=== PATIENT | female | born 1945 | race Caucasian/White ===

== ENCOUNTER 2016-06-26 07:12 | Inpatient (IN) | payer MEDICARE, BC ==
--- NOTE | 2016-06-18 15:03 | HP ---
HISTORY AND PHYSICAL: DATE OF ADMISSION: 06/26/16 CHIEF COMPLAINT: Left hip pain, osteoarthritis. HISTORY OF PRESENT ILLNESS: This 70-year-old white female has had left hip pain for sometime now. She is scheduled with Dr. Missy Floyd at [facility] on 06/26/16 for a left total hip replacement. PAST MEDICAL HISTORY: The patient is under the care of Dr. Jordan Alfred in [place], [place]. She has a history of hypertension, sleep apnea. However, she is currently not using her CPAP device, restless leg syndrome, morbid obesity. She underwent a laparoscopic sleeve gastrectomy in February 2015 and has been successful in losing approximately 85 pounds since her surgery for morbid obesity. She no longer has GE reflux symptoms since that surgery. PAST SURGICAL HISTORY: Other surgical history includes a tonsillectomy as a child, bilateral total knee replacements, bilateral rotator cuff repairs, laparoscopic tubal ligation, laparoscopic cholecystectomy, right carpal tunnel release and more recently in August 2015 a left wrist reconstruction with carpal tunnel release. She continues to have some residual left wrist pain and might require further surgery. CURRENT MEDICATIONS: 1. Hydrochlorothiazide 12.5 mg daily. 2. Losartan 50 mg daily. 3. Vitamin B12 500 mcg daily. 4. Flintstones chewable multiple vitamin daily. 5. Ropinirole 1 mg t.i.d. 6. Diclofenac or Aleve p.r.n. pain symptoms. ALLERGIES: ZITHROMAX, rash. DOXYCYCLINE, itching. LISINOPRIL, cough. GABAPENTIN, edema. She also has sensitive to ADHESIVES. FAMILY HISTORY: Father smoker, had emphysema, Parkinson's, at age 76. Mother, longevity, at age 92. SOCIAL HISTORY: The patient is , lives in the [place] area, retired. She has never used tobacco. Alcohol limited to glass of wine per week. REVIEW OF SYSTEMS: The patient complains of right knee pain, low back discomfort that sometimes radiates into her right lower extremity. Patient wears glasses. She has some chronic sneezing and chronic postnasal drip related to allergies. Chronic ankle edema. She does see Dr. Huntley for skin care every year, last seen in February. Otherwise, review of systems is negative to detailed questioning. Specifically, she denies any dyspnea, cough, chest pain, palpitations or edema symptoms. Denies any GI symptoms or urinary symptoms. PHYSICAL EXAMINATION GENERAL: This is a 70-year-old white female who is alert, pleasant and cooperative in no acute distress at the present time. VITAL SIGNS: Height 5 feet 2 inches, weight 203 pounds, blood pressure 132/68, pulse 76. HEENT: Pupils equal, round and reactive to light. Ears normal. Mouth: Teeth in good repair. Tongue in the midline. Pharynx is clear. NECK: Fair range of motion. No adenopathy. Thyroid benign. BACK: Mild kyphosis. No tenderness noted of the spine or CVA areas LUNGS: Clear. HEART: Rhythm is regular. Apical pulse is 76 beats per minute. No murmurs. ABDOMEN: Obese, multiple well-healed scars from previous surgeries. Active bowel sounds. Abdomen is soft, nontender. No obvious masses or organomegaly. However, this exam is difficult related to the patient's obese abdomen. NEUROLOGIC: Cranial nerves grossly intact. DIAGNOSTIC STUDIES/LABORATORY DATA: EKG showed normal sinus rhythm with a rare PAC, within normal limits. IMPRESSION: The patient is medically stable and cleared for her surgery with Dr. Missy Floyd on 06/26/16 for a left total hip replacement. ABDELRAHMAN GARCIA NP CC: Dr. Alfred; Dr. Floyd; Preadmission Testing Unit at the [facility] * [id number]/[facility] #: [id number] MTDD
--- NOTE | 2016-06-20 14:51 | HP ---
HISTORY AND PHYSICAL: DATE OF ADMISSION/SURGERY: 06/26/16 PROCEDURE: Left total hip arthroplasty. CHIEF COMPLAINT: Left hip pain. HISTORY OF PRESENT ILLNESS: Ms. Strong is a 70-year-old female with complaints of left hip pain. She has failed conservative management and has elected to proceed with a left total hip arthroplasty , which is scheduled for 06/26/[address] Floyd. PAST MEDICAL HISTORY: 1. Hypertension. 2. Sleep apnea. 3. Skin cancer. 4. Restless leg syndrome. PAST SURGICAL HISTORY: 1. Bariatric surgery. 2. Skin cancer removal. 3. Bilateral total knee arthroplasties. 4. Bilateral rotator cuff repair. 5. Bilateral carpal tunnel release. 6. Cholecystectomy. 7. Tubal ligation. 8. Tonsillectomy. 9. Adenoidectomy. CURRENT MEDICATIONS: 1. Losartan potassium. 2. Hydrochlorothiazide. 3. One A Day vitamin. 4. Ropinirole. 5. Vitamin B12. ALLERGIES: To ZITHROMAX, PHENOBARBITAL, NEUPRO ADHESIVE with a PATCH of ROTIGOTINE restless leg syn drome and LEVAQUIN. FAMILY HISTORY: Heart disease, skin cancer, Parkinson's disease . SOCIAL HISTORY: She is a 70-year-old female. She is . She is retired. She does not smoke o r use drugs. She uses occasional alcohol. REVIEW OF SYSTEMS: A complete 14-point review of systems was reviewed with the patient. All was ne gative or noncontributory. PHYSICAL EXAMINATION GENERAL: She is well developed, well nourished. She is in no acute distress. VITAL SIGNS: She stands 5 feet 2 inches tall, weighs 206 pounds. Her blood pressure is 136/72. He r heart rate is 88. HEENT: Normocephalic, atraumatic. NECK: Supple. No palpable lymph nodes. Trachea is midline. PULMONARY: The lungs are clear to auscultation bilaterally. No wheezes, rhonchi, or rales. CARDIO: Regular rate and rhythm. Strong S1, S2. No murmurs, gallops, or rubs. No peripheral edema . ABDOMEN: Soft, nontender, and nondistended. MUSCULOSKELETAL: Left lower extremity skin is intact. She walks with an antalgic- type gait favori ng her left leg. She has limited internal and external rotation of her left hip. She has 2+ dorsal is pedis pulses. Intact sensation. Her lower extremity muscle group strengths are intact at 5/5. NEUROLOGICAL: She is alert and oriented x3. Cranial nerves II through XII are intact. ASSESSMENT AND PLAN: Ms. Strong is a 70-year-old female with complaints of left hip pain secondar y to advanced osteoarthritis. She has failed conservative management and has elected to proceed wit h a left total hip arthroplasty, which is scheduled for 06/26/[address] Floyd discusse d the risks and benefits of the surgery and all of her questions were answered. Percocet, Colace, a nd Coumadin were sent to her pharmacy for postoperative pain control and DVT prophylaxis. She will see Dr. Floyd back in clinic for followup in 10 to 14 days. MOHSEN HANLEY [id number]/[facility] #: [id number]
[~2016-06-26 07:12] MED LIST: Buffered Lidocaine 1% SYRIN* 3 ML/SYR SYRINGE INTRADERM ONE; Dexamethasone IV* 4 MG/ML 1 ML (4 MG) IV SLOW PU ONE; Famotidine IV* 10 MG/ML 2 ML (20 mg) IV ONE; Scopolamine 1.5 mg* PATCH TRANSDERM ONE
[2016-06-26] MEDS ORDERED: Famotidine IV* 10 MG/ML 2 ML (20 mg) ONE (07:32)
[2016-06-26] MEDS ORDERED: Dexamethasone IV* 4 MG/ML 1 ML (4 MG) ONE (07:32)
[2016-06-26] MEDS ORDERED: Scopolamine 1.5 mg* PATCH ONE (07:33)
[2016-06-26] MEDS ORDERED: ceFAZolin 2 GM PREMIX(*) 2 GM/50 ML BAG IVPB ONE (07:33)
[2016-06-26] MEDS ORDERED: Bupivacaine 0.5% SDV PF* 30 ML VIAL ONE (08:31)
[2016-06-26] MEDS ORDERED: PROCHLORPERAZINE INJ 5 MG/ML 2 ML VIAL IV PRN (09:39)
[2016-06-26] MEDS ORDERED: Acetaminophen IV 1GM/100ML * 100 ML IVPB ONE (09:39)
[2016-06-26] MEDS ORDERED: Morphine INJ* 2 MG/ML 1 ML SYRINGE IV PRN (09:39)
[2016-06-26] MEDS ORDERED: fentaNYL* 50 MCG/ML 2 ML VIAL (100 MCG VIAL) IV PRN (09:39)
[2016-06-26] MEDS ORDERED: oxyCODONE TAB* 5 MG TAB PO PRN (09:41)
[2016-06-26] MEDS ORDERED: Midazolam* 1 MG/ML 5 ML VIAL (5 MG) ONE (09:44)
[2016-06-26] MEDS ORDERED: fentaNYL* 50 MCG/ML 2 ML VIAL (100 MCG VIAL) ONE ×3 (09:44→11:47)
[2016-06-26] MEDS ORDERED: Rocuronium* 10 MG/ML VIAL ONE (10:10)
[2016-06-26] MEDS ORDERED: Lidocaine 2% PF* 5 ML VIAL ONE (10:10)
[2016-06-26] MEDS ORDERED: Propofol* 10 MG/ML 20 ML BTL IV PUSH ONE (10:10)
[2016-06-26] MEDS ORDERED: KETAMINE HCL* 50 MG/ML 10 ML VIAL ONE (10:11)
[2016-06-26] MEDS ORDERED: Phenylephrine IV* 40 MCG/ML 10 ML SYRINGE ONE (10:35)
[2016-06-26] MEDS ORDERED: EPHEDrine (Pressors)* 50 MG/ML VIAL ONE (10:48)
[2016-06-26] MEDS ORDERED: Ondansetron INJ* 2 MG/ML VIAL ONE (11:48)
--- NOTE | 2016-06-26 12:37 | RAD ---
Indication: LEFT total hip replacement. Osteoarthritis. Comparison: June 20, 2016 Technique: Crosstable RIGHT lateral decubitus radiograph of the LEFT hip 1058 hours Report: Acetabular component with fixation screw in place. Test fit/reamer femur component in place. No fracture evident in the AP projection. Lateral subcutaneous emphysema. IMPRESSION: Procedural control film.
[2016-06-26] MEDS ORDERED: Acetaminophen IV 1GM/100ML * 100 ML ONE (13:04)
[2016-06-26] MEDS ORDERED: oxyCODONE/Acetamin 5/325 MG* TAB PO PRN (13:20)
[2016-06-26] MEDS ORDERED: Ondansetron TAB* 4 MG PO PRN (13:26)
[2016-06-26] MEDS ORDERED: Polyethylene Glycol 3350* 17 GM PACKET PO PRN (13:26)
[2016-06-26] MEDS ORDERED: Bisacodyl SUPP* 10 MG SUPP PR PRN (13:26)
[2016-06-26] MEDS ORDERED: Morphine INJ* 4 MG/ML 1 ML SYRINGE IV PRN (13:26)
[2016-06-26] MEDS ORDERED: Ondansetron INJ* 2 MG/ML VIAL IV PRN (13:26)
[2016-06-26] MEDS ORDERED: diPHENhydraMINE IV* 50 MG/ML 1 ml VIAL (BENADRYL) IV PRN (13:26)
[2016-06-26] MEDS ORDERED: LACTULOSE* 30 ML UDC PO PRN (13:26)
[2016-06-26] MEDS ORDERED: diPHENhydraMINE PO* 25 MG PO PRN (13:26)
--- NOTE | 2016-06-26 14:04 | RAD ---
INDICATION: Postop left total hip replacement COMPARISON: Pelvis June 26, 2006 TECHNIQUE: A single AP view of the pelvis is submitted. FINDINGS: There is left hip arthroplasty. Both femoral and tibial components appear well seated. There are soft tissue changes compatible with the recent surgery. IMPRESSION: POSTOPERATIVE LEFT HIP ARTHROPLASTY. THERE IS NORMAL POSTOPERATIVE APPEARANCE.
--- NOTE | 2016-06-26 14:05 | RAD ---
INDICATION: Postoperative left hip arthroplasty COMPARISON: Pelvis June 26, 2016 TECHNIQUE: An AP and crosstable lateral view of the left hip are submitted FINDINGS: There is left hip arthroplasty. Both femoral and acetabular components appear well seated. There are postsurgical changes in the soft tissues compatible with the recent surgery. IMPRESSION: POSTOPERATIVE LEFT HIP ARTHROPLASTY.
[2016-06-26] MEDS: rOPINIRole TAB* 1 MG PO SCH ×2 (16:45→21:29)
[2016-06-26] MEDS: ceFAZolin 1 GM in Dextrose (*) 1 GM/50 ML BAG IVPB SCH (16:46)
[2016-06-26] MEDS ORDERED: Warfarin TAB(*) 6 MG PO ONE (17:00)
[2016-06-26] MEDS: oxyCODONE TAB* 5 MG TAB PO PRN (18:44)
[2016-06-26] MEDS: Docusate CAP* 100 MG PO SCH (21:16)
[2016-06-26] MEDS: Magnesium Hydroxide LIQ* 30 ML UDC PO SCH (21:17)
--- NOTE | 2016-06-26 22:57 | CONS ---
CONSULTATION REPORT: DATE OF CONSULT: 06/26/16 DATE OF ADMISSION: 06/26/16 PROVIDER: Brit Boyd NP ATTENDING PHYSICIAN: Dr. Vences (report dictated by Brit Boyd NP) PRIMARY CARE PROVIDER: Dr. Alfred. REFERRING PHYSICIAN: Dr. Floyd. CONSULTATION REASON: Elective left total hip arthroplasty. Consultation for co - medical management. HISTORY OF PRESENT ILLNESS: Ms. Strong is a 70-year-old female with a past medical history of hypertension, sleep apnea, history of skin cancer, restless leg syndrome who had complaints of left hip pain who failed conservative management and underwent an elective left total hip arthroplasty with Dr. Floyd today. Hospital Medicine was asked to co-medical manage. The patient was evaluated at the bedside. She is alert and oriented x3. She reports left hip pain and which she thinks are secondary to the restless leg syndrome and which she describes as "spasms." She is requesting her Requip to be restarted and reports good control on the Requip. Per patient, she does not normally use her CPAP machine at home. However, she did bring it with her and plans to use it this evening. The patient denies any shortness of breath or chest pain. Denies any recent illnesses. Reports that her hypertension is well controlled. Overall, the patient reports that she currently feels "pretty well." Her son is at the bedside. PAST MEDICAL HISTORY: 1. Hypertension. 2. Sleep apnea, currently not using her CPAP device at home. 3. Restless leg syndrome. 4. Morbid obesity. 5. Status post laparoscopic sleeve gastrectomy in February 2015 in which she lost approximately 85 pounds since her surgery for morbid obesity. PAST SURGICAL HISTORY: 1. Status post tonsillectomy as a child. 2. Status post bilateral total knee replacement. 3. Bilateral rotator cuff repairs. 4. Laparoscopic tubal ligation. 5. Laparoscopic cholecystectomy. 6. Right carpal tunnel release. 7. Left wrist construction with carpal tunnel release, August 2015. HOME MEDICATIONS: 1. Hydrochlorothiazide 12.5 mg p.o. daily. 2. Losartan 50 mg p.o. daily. 3. Vitamin B12 500 mcg p.o. daily. 4. Flintstones chewable multivitamin daily. 5. Requip 1 mg t.i.d. 6. Diclofenac orally p.r.n. for pain. ALLERGIES: ZITHROMAX, rash; DOXYCYCLINE, itching; LISINOPRIL, cough; GABAPENTIN , edema. The patient has sensitivity to ADHESIVES. FAMILY HISTORY: The patient's mother at age 92. Her father had Parkinson' s disease and at age 76. SOCIAL HISTORY: The patient denies a history of tobacco abuse. Reports few glasses of wine weekly. The patient is currently retired. She is and lives with her , Norberto Strong, who is her healthcare proxy. His number is [phone] cell, home is [phone]. REVIEW OF SYSTEMS: A 14-point review of systems was performed. All the pertinent positives and negatives are mentioned in the history of present illness. All the remaining systems are negative. PHYSICAL EXAM: Vital Signs: Temperature 96.9, heart rate 83, respirations 14, O2 sat 100% on room air, blood pressure 123/60. Appearance: A 70-year-old female, sitting in bed, alert and oriented x3, in no acute distress. Good historian, very pleasant, appropriate to situation. HEENT: Head is normocephalic, atraumatic. Pupils are equal and reactive to light. Oropharynx is clear. Dry mucous membranes. Good dentition. Neck: Supple. Cardiac: S1 , S2. Regular rate and rhythm. No murmurs appreciated. Respiratory: Lungs are clear to auscultation bilaterally. Good aeration throughout. Abdomen: Soft, nontender, nondistended, obese, multiple healed scars from previous surgeries. Normal bowel sounds x4. No guarding. Extremities: Lower extremities are in hip precaution pillow. She has sensation to bilateral lower extremities with 2+ DP pulses bilaterally. Trace edema to bilateral lower extremities. Neuro: Grossly intact. Psych: Alert and oriented x3. Appropriate to situation. DIAGNOSTIC STUDIES/LAB DATA: No labs had been performed today. ASSESSMENT AND PLAN: Ms. Strong is a 70-year-old female with a past medical history of hypertension, sleep apnea, restless leg syndrome who presented for an elective left total hip arthroplasty today with Dr. Floyd. [facility] was asked to co-medical manage. 1. Status post left total hip arthroplasty. Postop day 0. Disposition per ortho team. Pain management, bowel regimen. PT/OT. 2. Hypertension, well controlled. We will hold the patient's hydrochlorothiazide in the postoperative setting and continue losartan at this time. We will reevaluate blood pressures tomorrow. 3. Restless leg syndrome. Per patient, it can be quite a debilitating problem for her and she was very concerned about missing her Requip dose at 4 p.m. today. I have restarted her Requip at this time as the patient is having spasms. I do note that Requip can cause some orthostatic hypotension. I have instructed the nurses and the patient to change position slowly and monitor for signs of orthostatic hypotension. 4. Obstructive sleep apnea. I have recommended to the patient she should wear her CPAP this evening and have ordered for her to be able to use her own equipment while in the hospital. 5. DVT prophylaxis. Lovenox to Coumadin bridge per ortho team. 6. Code status. Full code. TIME SPENT: Approximately 45 minutes were spent on this consultation. Hospital Medicine will continue to follow along. BRIT BOYD, CALLI [id number]/[facility] #: [id number] NATA
[2016-06-27] MEDS: ceFAZolin 1 GM in Dextrose (*) 1 GM/50 ML BAG IVPB SCH ×2 (00:46→08:38)
[2016-06-27] MEDS: oxyCODONE TAB* 5 MG TAB PO PRN ×5 (01:55→21:58)
[2016-06-27] MEDS: rOPINIRole TAB* 1 MG PO SCH ×3 (02:02→21:57)
[2016-06-27] MEDS ORDERED: Cyclobenzaprine TAB* 10 MG ONE (03:06)
[2016-06-27] MEDS ORDERED: Cyclobenzaprine TAB* 10 MG PO PRN (03:14)
[2016-06-27 06:29] LABS: Hematocrit 31 % (35-47); Hemoglobin 10.2 g/dl (12.0-16.0)
[2016-06-27 07:02] LABS: BUN/Creatinine Ratio 24.3 (8-20); EGFR African American 100.4 (>60)
--- NOTE | 2016-06-27 07:44 | PN ---
Progress Note - Progress Note SOAP: Subjective: Pt. is alert, mm spasms overnight greatly helped with cyclobenzaprine. Objective: LLE - dressing c/d/i. thigh soft, distally nvi with +df/pf, full sens lt and 2+ dp pulse. Vital Signs: Temp Pulse Resp BP Pulse Ox 98.1 F 84 18 92/36 92 06/27/16 03:38 06/27/16 03:38 06/27/16 07:28 06/27/16 03:38 06/27/16 03:38 Laboratory Results - last 24 hr 06/27/16 06/27/16 06/27/16 06:16 06:16 06:16 Hgb 10.2 L Hct 31 L INR (Anticoag Therapy) 1.01 Sodium 137 Potassium 4.0 Chloride 102 Carbon Dioxide 28 Anion Gap 7 BUN 18 Creatinine 0.74 Est GFR ( Amer) 100.4 Est GFR (Non-Af Amer) 78.0 BUN/Creatinine Ratio 24.3 H Glucose 112 H Calcium 9.0 Assessment: 70 yo F pod 1 s/p LTHA Plan: wbat LLE with post. hip precautions pt/ot lovenox in hospital, home on [address] bid plan d/c to home with vns 06/28
[2016-06-27] MEDS: Docusate CAP* 100 MG PO SCH ×2 (08:39→21:57)
[2016-06-27] MEDS: Magnesium Hydroxide LIQ* 30 ML UDC PO SCH ×2 (08:39→21:59)
[2016-06-27] MEDS: Cyanocobalamin TAB* 500 MCG PO SCH (08:40)
--- NOTE | 2016-06-27 08:53 | PN ---
Subjective Date of Service: 06/27/16 Interval History: pt reports she is sore and stiff but doing well overall. Reports muscle spasms that were intense overnight now controlled. Denies SOB or CP Objective Active Medications: Bisacodyl (Dulcolax Supp*) 10 mg UT DAILY PRN PRN Reason: constipation Cyanocobalamin (Vitamin B12 Tab*) 500 mcg PO DAILY [facility] Last Admin: 06/27/16 08:40 Dose: 500 mcg Cyclobenzaprine HCl (Flexeril Tab*) 10 mg PO Q8H PRN PRN Reason: MUSCLE SPASMS Diphenhydramine HCl (Benadryl Iv*) 12.5 mg IV Q6H PRN PRN Reason: PRURITIS Diphenhydramine HCl (Benadryl Po*) 25 mg PO Q6H PRN PRN Reason: itching or insomnia Docusate Sodium (Colace Cap*) 100 mg PO BID [facility] Last Admin: 06/27/16 08:39 Dose: 100 mg Enoxaparin Sodium (Lovenox(*)) 30 mg SUBCUT Q24H [facility] Lactated Ringer's (Lactated Ringers 1000 Ml Bag*) 1,000 mls @ 100 mls/hr IV PER RATE [facility] Last Admin: 06/27/16 02:54 Dose: 100 mls/hr Lactulose (Lactulose*) 30 ml PO Q6H PRN PRN Reason: constipation Losartan Potassium (Cozaar Tab*) 50 mg PO QAM [facility] Magnesium Hydroxide (Milk Of Magnesia Liq*) 30 ml PO BID [facility] Last Admin: 06/27/16 08:39 Dose: 30 ml Morphine Sulfate (Morphine Inj (Syringe)*) 4 mg IV Q2H PRN PRN Reason: PAIN Ondansetron HCl (Zofran Inj*) 4 mg IV Q6H PRN PRN Reason: nausea Ondansetron HCl (Zofran Tab*) 4 mg PO Q6H PRN PRN Reason: NAUSEA Oxycodone HCl (Roxycodone Tab*) 5 mg PO ONCE PRN PRN Reason: PRn Pain in PACU,May repeat x1 Oxycodone HCl (Roxycodone Tab*) 10 mg PO Q4H PRN PRN Reason: breaktrough or moderate pain Last Admin: 06/27/16 07:28 Dose: 10 mg Oxycodone/Acetaminophen (Percocet 5/325 Tab*) 1 tab PO Q4H PRN PRN Reason: PAIN Pharmacy Profile Note (Scopolomine Patch Remove*) 1 note PATCH OFF ONCE ONE Stop: 06/29/16 06:01 Pharmacy Profile Note (Coumadin Daily Reminder*) 1 note FOLLOW UP 1700 [facility] Last Admin: 06/26/16 17:26 Dose: Not Given Polyethylene Glycol/Electrolytes (Miralax*) 17 gm PO DAILY PRN PRN Reason: Constipation Ropinirole HCl (Requip Tab*) 1 mg PO 0200,1600,2200 [facility] Last Admin: 06/27/16 02:02 Dose: 1 mg Vital Signs 06/27/16 06/27/16 06/27/16 01:55 03:07 03:38 Temperature 98.1 F Pulse Rate 84 Respiratory 20 20 16 Rate Blood Pressure 92/36 (mmHg) O2 Sat by Pulse 92 Oximetry 06/27/16 06/27/16 06/27/16 03:55 05:07 07:28 Temperature Pulse Rate Respiratory 18 18 18 Rate Blood Pressure (mmHg) O2 Sat by Pulse Oximetry 06/27/16 07:31 Temperature 98.1 F Pulse Rate 91 Respiratory 17 Rate Blood Pressure 102/53 (mmHg) O2 Sat by Pulse 97 Oximetry Oxygen Devices in Use Now: None Appearance: 70 yo female sitting up in bed in NAD. A+O x3 Eyes: No Scleral Icterus, PERRLA Ears/Nose/Mouth/Throat: NL Teeth, Lips, Gums, Mucous Membranes Moist Neck: NL Appearance and Movements; NL JVP Respiratory: Symmetrical Chest Expansion and Respiratory Effort, Clear to Auscultation Cardiovascular: NL Sounds; No Murmurs; No JVD, RRR Abdominal: NL Sounds; No Tenderness; No Distention Extremities: No Clubbing, Cyanosis, - - 1+ LE edema noted Skin: No Nodules or Sclerosis Neurological: Alert and Oriented x 3, NL Sensation, NL Muscle Strength and Tone Lines/Tubes/Other Access: Clean, Dry and Intact Peripheral IV Nutrition: Taking PO's Result Diagrams: 06/27/16 06:16 06/27/16 06:16 Assess/Plan/Problems-Billing Assessment: 70 yo female with a PMH of HTN, RUTH ANN, restless leg syndrome who underwent an elective left total hip arthroplasty 06/[address] Floyd. - Patient Problems (1) s/p left hip arthroplasty Comment: POD #1 Dispo per ortho - HH stable, continue to monitor - PT/OT - Bowel Regimen. (2) HTN (hypertension) Comment: - controlled, on the softer side. Continue losartan, hold HCTZ (3) Restless leg syndrome Comment: - continue home dose requip - flexeril PRN (4) RUTH ANN (obstructive sleep apnea) Comment: - home cpap (5) DVT prophylaxis Comment: lovenox to coumadin (6) Full code status Status and Disposition: Dispo per Ortho. Home when medically stable. Hospital Medicine co-medical management
[2016-06-27] MEDS ORDERED: Hydrochlorothiazide TAB* 25 MG PO SCH (09:00)
[2016-06-27] MEDS: Losartan TAB* 25 MG PO SCH (11:23)
[2016-06-27] MEDS: Enoxaparin(*) 30 MG/0.3 ML SYR SUBCUT SCH (13:17)
--- NOTE | 2016-06-27 17:53 | OP ---
DATE OF OPERATION: 06/26/16 - ROOM #347 DATE OF : 49 SURGEON: Missy Floyd MD EMERGENCY PLANNING AND RESPONSE MANAGER: MOHSEN Sin ANESTHESIOLOGIST: Dr. Hansen. ANESTHESIA: General. 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 OPERATIVE PROCEDURE: Left total hip arthroplasty. INDICATIONS: Ms. Strong is a 70-year-old female with years of increasingly severe left hip pain. She failed conservative treatment with activity modification, physical therapy, antiinflammatories, ambulatory assistive devices , and pain medication. Radiographs confirmed dysplasia of the hip and severe arthritis with dnrr-te-[id number] contact. She elected to have left total hip arthroplasty due to continued pain and decreased quality of life. Informed consent was obtained from the patient. She understood the risks of the procedure included but were not limited to bleeding, infection, damage to nearby structures, continued pain, need for further surgery, intraoperative fracture, nerve palsy, hardware failure or loosening, dislocation, leg length discrepancy, stroke, heart attack, blood clot, and . She wished to proceed. COMPLICATIONS: None. ESTIMATED BLOOD LOSS: 400 cc. SPECIMENS: Femoral head and acetabular reaming sent to Pathology. HARDWARE USED: This was uncemented [place]hill total hip hardware. For the cup, a size 50 Tritanium multi-hole shell with 2 cancellous bone screws, length 20 and 16. A Trident X3 10-degree 32D liner was used. For the stem, an accolade TMZF size 2.5 with 132-degree neck as well as a ceramic Biolox delta 32 -4 femoral head. INTRAOPERATIVE FINDINGS: Intraoperatively, the patient was noted to have a dysplastic shallow acetabulum with very little medial bone. The bone was sclerotic with complete loss of cartilage. Femoral head had complete loss of cartilage as well. There was dysplastic shape to the proximal femur and neck. DESCRIPTION OF PROCEDURE: Ms. Strong was identified in the preanesthesia unit. Her left lower extremity was marked as the correct operative side. Informed consent was signed and placed in the chart. The patient was taken to the operating room and placed under general anesthesia. A Leal catheter was placed. She was placed in the right lateral decubitus position on the peg board. All bony prominences were well padded. Left lower extremity was prepped and draped in the usual sterile fashion. Preop time-out was made to correctly identify the patient's side and site. Appropriate perioperative antibiotics were given within 1 hour of incision. A 10-cm posterior hip incision was made with a 10 blade and carried down to the lateral fascial layer. Lateral fascial layer was then incised in line with the skin incision. A Charnley retractor was placed. The piriformis and conjoint tendons were identified and elevated off the posterolateral femur using electrocautery. These were tagged with two #5 Ethibonds. Next, electrocautery was used to make a standard posterolateral capsular flap. This was also tagged with two #5 Ethibonds. The hip was carefully dislocated. Lesser troch to the center of the femoral head measured 53 mm. Oscillating saw was used to make the appropriate femoral neck cut. Femoral head was sent to Pathology. The femur was retracted anteriorly. After appropriate placement of retractor, the acetabulum was visualized. The acetabulum was dysplastic with complete loss of cartilage and sclerotic bone. A large amount of anterior osteophyte was noted. Posterior wall was quite thin. A long-handled knife was used to remove any remaining labrum. Sequential reaming was carefully carried out without much medial progress due to the lack of any medial bone. A bleeding bone bed was obtained with a reamer of 49 mm. A 49 trial had good fit. A size 50 multi-hole Tritanium shell was chosen as the final implant. This was impacted into place without difficulty. Appropriate anteversion and abduction angle were obtained. One 16-mm and one 20-mm screw were placed for extra stability. Thin osteotome was used to remove the anterior osteophytes. A 32D 10-degree liner was chosen and this was impacted into the acetabulum without difficulty. The liner was checked and rechecked and noted to be stable. Next, attention was turned to preparation of the proximal femur. Box cut osteotome and canal finder were used to enter the proximal femur. The femoral canal was sequentially broached up to a size 2.5 which had good stability. A 132-neck trial was chosen as well as a 32 +0 femoral head trial. Lesser troch to the center of the femoral head measured 55 mm. Therefore, a 32 -4 head was chosen; this measured 52 mm. The hip was reduced and taken through a range of motion. The hip was stable in all positions with good soft tissue tension. The hip was carefully dislocated and all trials were removed. Final implant chosen was an Accolade TMZF femoral stem size 2.5 with a 132-degree neck. A Biolox delta ceramic femoral head 32 -4 was chosen. This was impacted on to the femoral neck without difficulty. The hip was reduced and taken through a range of motion. The hip was stable in all positions with good soft tissue tension. The previously tagged capsule and tendons were reapproximated to the posterolateral femur using two trochanteric drill holes. The hip was copiously irrigated with sterile saline. The lateral fascial layer was reapproximated using interrupted #1 Vicryls. The rest of the incision was closed in a layered fashion using 0 and 2-0 Vicryls. Skin was closed using running 3-0 Monocryl suture with Dermabond. Sterile Adaptic, 4x4s, and paper tape were used to cover this. The patient's anesthesia was reversed without difficulty. She was taken to the PACU in stable condition. Intended weightbearing will be weightbearing as tolerated with posterior hip precautions. Intended DVT prophylaxis will be Lovenox in hospital and aspirin to go home with per the patient's request. [id number]/CPS #: [id number] MTDRafy
[2016-06-28] MEDS: oxyCODONE TAB* 5 MG TAB PO PRN ×3 (04:08→11:57)
[2016-06-28] MEDS: rOPINIRole TAB* 1 MG PO SCH (04:08)
[2016-06-28 06:39] LABS: Hematocrit 32 % (35-47); Hemoglobin 10.3 g/dl (12.0-16.0)
[2016-06-28] MEDS: Cyanocobalamin TAB* 500 MCG PO SCH (08:04)
[2016-06-28] MEDS: Losartan TAB* 25 MG PO SCH (08:04)
[2016-06-28] MEDS: Docusate CAP* 100 MG PO SCH (08:05)
[2016-06-28] MEDS: Magnesium Hydroxide LIQ* 30 ML UDC PO SCH (08:06)
--- NOTE | 2016-06-28 09:54 | PN ---
Progress Note - Progress Note SOAP: Subjective: []Patient seen OOB in chair. Fully dressed. Doing well. Ready to go home this afternoon. Objective: [] Vital Signs Temp 98.5 F 06/28/16 07:25 Pulse 90 06/28/16 07:25 Resp 16 06/28/16 08:05 BP 112/58 06/28/16 07:25 Pulse Ox 96 06/28/16 07:47 Intake & Output 06/27/16 06/28/16 06/28/16 18:59 06:59 18:59 Intake Total 1490 1130 Output Total 1000 450 0 Balance 490 680 0 Intake: IV Fluids 1040 ABX - CEFAZOLIN 55 LR 985 Oral 450 1130 Output: Urine 250 450 0 Leal 750 Laboratory Results - last 24 hr 06/28/16 06/28/16 06:21 06:21 Hgb 10.3 L Hct 32 L INR (Anticoag Therapy) 1.10 Left hip dressing removed- benign, no drainage on dressings +DF/PF left ankle calf NT and soft new 4x4s and tape applied. Assessment: []s/p Left total hip arthroplasty POD #2 Plan: []Discharge home this afternoon with VNS planned ASA 325 mg BID follow up with Dr. Floyd 10-14 days in office
[2016-06-28 13:26] VITALS: BP 123/54
[2016-06-28] MEDS: Enoxaparin(*) 30 MG/0.3 ML SYR SUBCUT SCH (13:36)
[2016-06-29] MEDS ORDERED: Scopolomine PATCH Remove* 1 NOTE MISC PATCH OFF ONE (06:00)
--- NOTE | 2016-06-29 06:53 | DS ---
DISCHARGE SUMMARY: DATE OF ADMISSION: 06/26/16 DATE OF DISCHARGE: 06/28/16 ATTENDING PHYSICIAN: Dr. Missy Floyd. ADMISSION DIAGNOSES: Severe end-stage degenerative arthritis, left hip joint with developmental dysplasia. DISCHARGE DIAGNOSES: Severe end-stage degenerative arthritis, left hip joint with developmental dysplasia. SURGERY PERFORMED: Left total hip arthroplasty. HOSPITAL COURSE: The patient is a 70-year-old female with increasingly severe left hip pain. She failed conservative management with Physical Therapy, anti- inflammatories, ambulatory assistive devices, pain medication, and activity modification. Her x-rays revealed a dysplastic hip and severe end-stage osteoarthritis with yxso-nz-yuwf contact. She elected to proceed with surgical intervention and was taken to the operating room under the care of Dr. Missy Floyd on the date of 06/26/16. She tolerated the aforementioned procedure without difficulty and left the operating room in stable condition. Postoperatively, she progressed satisfactorily with her physical therapy and occupational therapy goals. The patient declined use of Coumadin for her DVT prophylaxis and was placed on Lovenox during her hospital stay and was in agreement with aspirin 325 mg p.o. b.i.d. upon discharge. She had no postoperative complications and was found that she was stable medically and orthopedically for discharge to home on the date of 06/28/16. CONDITION ON DISCHARGE: Vital signs were stable. She was afebrile. Her neurovascular status in the left lower extremity was intact with active dorsiflexion and plantarflexion on the left ankle and a 2+ pedal pulse. Her calf is soft and nontender. Her left hip incision was clean and dry without evidence of erythema or swelling. PLAN: The patient to be discharged to home, 06/28/16. She may bear weight as tolerated on the left lower extremity. She will continue with her physical therapy exercise program. She will use aspirin 325 mg p.o. b.i.d. Continue with the Colace and oxycodone as previously prescribed. We recommend a followup in the office with Dr. Floyd in 10 to 14 days. She will call the office if she has any increased left hip pain, drainage, swelling, redness, or calf pain. MOHSEN RODRIGUEZ [id number]/[facility] [place] #: [id number] MTDRafy
== END 2016-06-28 14:20 | disposition home health service (06) | DRG 470 ==
LOC: AA 07:32 → SSU 15:52
PROVIDERS: ADMIT Orthopaedic Surgery Adult Reconstructive Orthopaedic Surgery; ATTEND Orthopaedic Surgery Adult Reconstructive Orthopaedic Surgery
PROC: 0SRB04A Replacement of Left Hip Joint with Ceramic on Polyethylene Synthetic Substitute, Uncemented, Open Approach (ICD-10-PCS; principal; 2016-06-26 09:45)
DX: M16.12 Unilateral primary osteoarthritis, left hip (principal); E66.01 Morbid (severe) obesity due to excess calories; I10 Essential (primary) hypertension; Q74.2 Other congenital malformations of lower limb(s), including pelvic girdle; Z79.82 Long term (current) use of aspirin; G25.81 Restless legs syndrome; Z85.828 Personal history of other malignant neoplasm of skin; Z96.653 Presence of artificial knee joint, bilateral; Z98.51 Tubal ligation status; Z88.1 Allergy status to other antibiotic agents; Z88.8 Allergy status to other drugs, medicaments and biological substances; Z98.84 Bariatric surgery status; Z83.6 Family history of other diseases of the respiratory system; Z82.0 Family history of epilepsy and other diseases of the nervous system; G47.33 Obstructive sleep apnea (adult) (pediatric); K21.9 Gastro-esophageal reflux disease without esophagitis; Z68.36 Body mass index [BMI] 36.0-36.9, adult
CPT/HCPCS: 36415; 72170; 80048; 85014; 85018; 85610; 94760; A9270-GY; C1713; C1776; J0690; J1100; J1650; J2250; J2405; J2704; J3010

== ENCOUNTER 2016-09-13 12:46 | Inpatient (IN) | payer MEDICARE, BC ==
--- NOTE | 2016-08-23 07:41 | HP ---
CC: Dr. Jordan Alfred; Dr. Missy Floyd HISTORY AND PHYSICAL: DATE OF ADMISSION: 09/13/16 CHIEF COMPLAINT: Increasing right knee pain. 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 She is scheduled by Dr. Missy Floyd at [facility] on 09/13/16 for revision of the right total knee. PAST MEDICAL HISTORY: The patient is under the care of Dr. Jordan Alfred. She has a history of hypertension; sleep apnea, however, she is not currently using her CPAP device; restless leg syndrome; morbid obesity. She underwent laparoscopic sleeve gastrectomy in February 2015. Since that surgery, she has had no further problems with reflux. PAST SURGICAL HISTORY: Tonsillectomy as a child, bilateral total knee replacements, bilateral rotator cuff repair, laparoscopic tubal ligation, laparoscopic cholecystectomy, right carpal tunnel release, left wrist reconstruction and carpal tunnel release. The patient does continue to have some residual left wrist pain and will be requiring further left wrist surgery after she has recovered from revision of her right total knee. CURRENT MEDICATIONS: 1. Hydrochlorothiazide 12.5 mg daily. 2. Losartan 50 mg daily. 3. Vitamin B12 500 mcg sublingual daily. 4. Turner chewable multivitamin daily. 5. Ropinirole 1 mg t.i.d. ALLERGIES: ZITHROMAX, rash; DOXYCYCLINE, itching; LISINOPRIL, cough; GABAPENTIN , edema. She also is sensitive to ADHESIVES. FAMILY HISTORY: Father was a smoker, had emphysema, Parkinson's, at 76. Mother longevity, at 92. SOCIAL HISTORY: The patient is . Lives in the [facility]. She is retired. She has never used any tobacco products and limits herself to a glass of wine per week. REVIEW OF SYSTEMS: She wears glasses, has some chronic sneezing and postnasal drip symptoms related to allergies, chronic ankle edema, which was worse after her left hip replacement but is better controlled with periodic elevation and that she has used compression stockings. She had an episode of right lumbar radiculopathy in June. Physical therapy was very helpful. She uses an occasional TENS unit. She sees Dr. Huntley once a year in February for skin checks. Otherwise, review of systems is negative to detailed questioning. She specifically denies any dyspnea, cough, chest pain, or palpitations. No GI or urinary symptoms. PHYSICAL EXAMINATION GENERAL: This 71-year-old obese white female is alert, pleasant, and cooperative. VITAL SIGNS: Height 5 feet 2 inches, weight 202 pounds, blood pressure 120/66, and pulse 72. HEENT: Pupils equal, round, and reactive to light. Ears: Normal. Mouth: Teeth in good repair. Tongue is midline. Pharynx is clear. NECK: Fair range of motion. No adenopathy. Thyroid benign. LUNGS: Clear. HEART: Rhythm is regular. Apical pulse 72 beats per minute. No murmurs. EKG was recently done on 06/18/16, showed normal sinus rhythm, within normal limits with a ventricular rate of 70. Please see copy for details, not repeated. ABDOMEN: Obese. Multiple well healed scars from previous surgeries. Active bowel sounds. Abdomen is soft and nontender. No obvious masses or organomegaly ; however, this exam was difficult related to the patient's obese abdomen. EXTREMITIES: The patient ambulates independently. No assisting aids. She has scars on her bilateral knees and her left hip from previous surgeries. No cellulitis. No gross deformities. No cyanosis. NEUROVASCULAR: Cranial nerves grossly intact. No sensory deficits noted. BACK: Mild kyphosis. No tenderness noted of the spine or CVA areas. SKIN: Warm, dry, and pale pink, intact. IMPRESSION: The patient is medically stable and cleared for her surgery with Dr. Missy Floyd for revision of right total knee. ABDELRAHMAN GARCIA, CALLI [id number]/CPS #: [id number] NATA
--- NOTE | 2016-09-07 11:11 | HP ---
HISTORY AND PHYSICAL: DATE OF ADMISSION/SURGERY: 09/13/16 DATE OF OFFICE VISIT: 09/05/16 SURGEON: Missy Floyd MD PROCEDURE: Revision of a right total knee arthroplasty. CHIEF COMPLAINT: Right knee pain. HISTORY OF PRESENT ILLNESS: Ms. Strong is a 71-year-old female with a painful right total knee art hroplasty. She failed conservative management and has elected to proceed with revision of a right t otal knee arthroplasty with Dr. Floyd on 09/13/16. PAST MEDICAL HISTORY: Hypertension, sleep apnea, obesity, and skin cancer. PAST SURGICAL HISTORY: Gastrectomy, tonsillectomy, bilateral total knee arthroplasties, bilateral r otator cuff repairs, tubal ligation, cholecystectomy, bilateral carpal tunnel release, and left tota l hip arthroplasty. MEDICATIONS: 1. Losartan potassium 50 mg once a day. 2. Hydrochlorothiazide 12.5 mg once a day. 3. [place] vitamin once a day. 4. Ropinirole 1 mg twice a day. 5. Vitamin B12 500 mcg. ALLERGIES: ZITHROMAX, PHENOBARBITAL, NEUPRO ROTIGOTINE PATCH, AND LEVAQUIN. FAMILY HISTORY: Heart disease, skin cancer, Parkinson's. SOCIAL HISTORY: She is a 71-year-old female. She does not smoke or use drugs. She uses [employer]. REVIEW OF SYSTEMS: A complete 14-point review of systems was reviewed with the patient and it was a ll negative or noncontributory. PHYSICAL EXAMINATION GENERAL: She is well developed, well nourished, in no acute distress. VITAL SIGNS: She stands 5 feet 2 inches tall, weighs 205 pounds. Her blood pressure is 118/62, her heart rate is 72. HEENT: Normocephalic and atraumatic. NECK: Supple. PULMONARY: Lungs are clear to auscultation bilaterally. CARDIO: Regular rate and rhythm. ABDOMEN: Soft, nontender, nondistended. NEUROLOGIC: Alert and oriented x3. Cranial nerves II through XII are intact. MUSCULOSKELETAL: Right lower extremity skin is intact. There is a well-healed midline scar over th e right knee. There is a mild to moderate joint effusion. She has full range of motion of the righ t knee, 2+ dorsalis pedis pulses and intact sensation. Her lower extremity muscle strengths are int act at 5/5. ASSESSMENT AND PLAN: Ms. Strong is a 71-year-old female who underwent a right total knee arthropl asty, continued to have pain, has elected to proceed with revision of a right total knee, which is s cheduled for 09/13/[address] Floyd discussed the risks and the benefits of the surgery at today's visit and all of her questions were answered. Percocet was sent to her pharmacy today fo r postoperative pain control. DVT prophylaxis postoperatively has not been determined and she will see Dr. Floyd back 2 weeks after the surgery. MOHSEN HANLEY [id number]/[facility] #: [id number]
[~2016-09-13 12:46] MED LIST changes: +Buffered Lidocaine 0.9% SYRIN* 5 ML/SYR SYRINGE INTRADERM ONE; -Buffered Lidocaine 1% SYRIN* 3 ML/SYR SYRINGE INTRADERM ONE; -Scopolamine 1.5 mg* PATCH TRANSDERM ONE; +Scopolamine 1.5 mg* PATCH TRANSDERM SCH
[2016-09-13] MEDS ORDERED: ceFAZolin 2 GM PREMIX(*) 2 GM/50 ML BAG IVPB ONE (12:54)
[2016-09-13] MEDS ORDERED: Buffered Lidocaine 0.9% SYRIN* 5 ML/SYR SYRINGE ONE (12:54)
[2016-09-13] MEDS ORDERED: Famotidine IV* 10 MG/ML 2 ML (20 mg) ONE (12:54)
[2016-09-13] MEDS ORDERED: Dexamethasone IV* 4 MG/ML 1 ML (4 MG) ONE (12:54)
[2016-09-13] MEDS ORDERED: Scopolamine 1.5 mg* PATCH ONE (12:55)
[2016-09-13] MEDS ORDERED: Atracurium* 10 MG/ML 10 ML VIAL ONE (13:44)
[2016-09-13] MEDS ORDERED: Midazolam* 1 MG/ML 5 ML VIAL (5 MG) ONE (13:44)
[2016-09-13] MEDS ORDERED: fentaNYL* 50 MCG/ML 5 ML VIAL (250 MCG VIAL) ONE (13:44)
[2016-09-13] MEDS ORDERED: Lidocaine 2% PF * 5 ML VIAL ONE (13:45)
[2016-09-13] MEDS ORDERED: Ondansetron INJ* 2 MG/ML VIAL ONE (13:45)
[2016-09-13] MEDS ORDERED: Propofol* 10 MG/ML 20 ML BTL IV PUSH ONE ×2 (13:45)
[2016-09-13] MEDS ORDERED: EPHEDrine (Pressors)* 50 MG/ML VIAL ONE (13:46)
[2016-09-13] MEDS ORDERED: fentaNYL* 50 MCG/ML 2 ML VIAL (100 MCG VIAL) ONE ×4 (15:39→19:56)
[2016-09-13] MEDS ORDERED: DiMENhydriNATE IV* 50 MG/ML VIAL IV PUSH PRN (15:53)
[2016-09-13] MEDS ORDERED: Ondansetron INJ* 2 MG/ML VIAL IV PRN ×2 (15:53→16:57)
[2016-09-13] MEDS ORDERED: Acetaminophen TAB* 325 MG PO PRN (16:57)
[2016-09-13] MEDS ORDERED: Bisacodyl SUPP* 10 MG SUPP PR PRN (16:57)
[2016-09-13] MEDS ORDERED: diPHENhydraMINE IV* 50 MG/ML 1 ml VIAL (BENADRYL) IV PRN (16:57)
[2016-09-13] MEDS ORDERED: oxyCODONE TAB* 5 MG TAB PO PRN (16:57)
[2016-09-13] MEDS ORDERED: Polyethylene Glycol 3350* 17 GM PACKET PO PRN (16:57)
[2016-09-13] MEDS ORDERED: Morphine INJ* 2 MG/ML 1 ML SYRINGE IV PRN (16:57)
[2016-09-13] MEDS ORDERED: Desflurane* 240 ML INH ONE (17:53)
[2016-09-13] MEDS ORDERED: HYDROmorphone* 1 MG/ML 1 ML SYR ONE (19:56)
[2016-09-13] MEDS: fentaNYL* 50 MCG/ML 2 ML VIAL (100 MCG VIAL) IV PRN ×2 (19:58→20:49)
[2016-09-13] MEDS: HYDROmorphone* 1 MG/ML 1 ML SYR IV PRN ×2 (20:02→20:10)
[2016-09-13] MEDS ORDERED: oxyCODONE/Acetamin 5/325 MG* TAB ONE (21:11)
[2016-09-13] MEDS: oxyCODONE/Acetamin 5/325 MG* TAB PO PRN (21:12)
--- NOTE | 2016-09-13 22:10 | RAD ---
Indication: Right knee revision. 2 views of the right knee demonstrates right knee replacement. Drainage catheter is in place. IMPRESSION: Right knee replacement in satisfactory position.
--- NOTE | 2016-09-13 22:11 | RAD ---
Indication: Right knee replacement. 2 views of the right femur demonstrates right knee prosthesis with the femoral component demonstrating a long femoral stem. No loosening is noted. No periprostatic fracture is noted. IMPRESSION: Right femur is intact with the right femoral stem in place.
[2016-09-13] MEDS ORDERED: Cyclobenzaprine TAB* 10 MG ONE (22:22)
--- NOTE | 2016-09-13 22:23 | RAD ---
Indication: Right total knee revision. 2 views of the right lower leg demonstrates revision of the right knee replacement. Component appears to be well seated. The remainder of the tibia and fibula are unremarkable. IMPRESSION: Revision of right total knee replacement. The remainder of the tibia and fibula are unremarkable.
[2016-09-13] MEDS: Cyclobenzaprine TAB* 10 MG PO PRN (22:24)
--- NOTE | 2016-09-13 22:53 | RAD ---
CPT II Codes: 6045F INDICATION: Right knee replacement revision. Fluoroscopic services provided for referring physician. 16.5 seconds of fluoroscopy time was used. 6. Spot images were obtained. IMPRESSION: Fluoroscopic services provided for referring physician for right knee replacement revision.
[2016-09-13] MEDS: Ropinirole TAB* 0.5 MG TAB PO SCH (23:22)
[2016-09-13] MEDS ORDERED: Warfarin TAB(*) 6 MG PO ONE (23:45)
[2016-09-14] MEDS: Docusate CAP* 100 MG PO SCH ×3 (00:12→20:41)
[2016-09-14] MEDS: oxyCODONE/Acetamin 5/325 MG* TAB PO PRN ×5 (00:13→20:41)
[2016-09-14] MEDS: ceFAZolin VIAL(*) 1 GM in NS 0.9% 50 ML* 50 ML IVPB SCH ×3 (00:14→16:12)
[2016-09-14] MEDS: Ropinirole TAB* 0.5 MG TAB PO SCH ×3 (03:31→22:15)
[2016-09-14 06:29] LABS: Hematocrit 30 % (35-47); Hemoglobin 9.6 g/dl (12.0-16.0)
[2016-09-14 06:47] LABS: BUN/Creatinine Ratio 24.6 (8-20); Calcium 8.9 mg/dL (8.6-10.3); EGFR African American 108.5 (>60); EGFR Non-African American 84.4 (>60); Potassium 4.4 mmol/L (3.5-5.0)
[2016-09-14] MEDS: Losartan TAB* 25 MG PO SCH (08:02)
[2016-09-14] MEDS: Hydrochlorothiazide TAB* 25 MG PO SCH (08:02)
--- NOTE | 2016-09-14 11:19 | PN ---
Progress Note - Progress Note Date of Service: 09/14/16 SOAP: Subjective: 71 y/o female s/p L TKA revision 09/14/[address] Floyd. Patient feeling well, pain tolerable, treated well with percocet. VSS afebrile overnight. Objective: General- Well appearing, NAD MSK- Surgical dressing intact, no drainage noted. neg homans b/l, increase edema LLE, non-pitting. sensation intact to light touch, + DF/PF b/l. Vital Signs Temp 97.4 F 09/14/16 07:36 Pulse 69 09/14/16 07:36 Resp 16 09/14/16 10:01 BP 114/65 09/14/16 07:36 Pulse Ox 99 09/14/16 07:36 Intake & Output 09/13/16 09/14/16 09/14/16 18:59 06:59 18:59 Intake Total 3000 Output Total 850 Balance 2150 Weight 202 lb 6.4 oz Intake: IV Fluids 2600 LR 2600 Oral 400 Output: Leal 850 Other: Estimated Blood Loss 300 Comment Laboratory Results - last 24 hr 09/14/16 09/14/16 09/14/16 05:45 05:45 05:45 Hgb 9.6 L Hct 30 L INR (Anticoag Therapy) 0.99 Sodium 136 Potassium 4.4 Chloride 104 Carbon Dioxide 28 Anion Gap 4 BUN 17 Creatinine 0.69 Est GFR ( Amer) 108.5 Est GFR (Non-Af Amer) 84.4 BUN/Creatinine Ratio 24.6 H Glucose 115 H Calcium 8.9 Assessment: 71 y/o female s/p L TKA revision 09/14/[address] Floyd. Plan: - DVT prophylaxis- coumadin, lovenox- coumadin 8mg tonight - continue PT/ OT - Continue pain regimen Active Medications Generic Name Dose Route Start Last Admin Trade Name Freq PRN Reason Stop Dose Admin Acetaminophen 650 mg 09/13/16 16:57 Tylenol Tab* PO Q4H PRN PAIN OR TEMPERATURE Bisacodyl 10 mg 09/13/16 16:57 Dulcolax Supp* NV DAILY PRN constipation Cyclobenzaprine HCl 10 mg 09/13/16 17:01 09/13/16 22:24 Flexeril Tab* PO 10 mg TID PRN Administration LEG CRAMPS Diphenhydramine HCl 12.5 mg 09/13/16 16:57 Benadryl Iv* IV Q6H PRN PRURITIS Docusate Sodium 100 mg 09/13/16 21:00 09/14/16 08:01 Colace Cap* PO 100 mg BID JULIET Administration Enoxaparin Sodium 40 mg 09/14/16 17:00 Lovenox(*) SUBCUT Q24H JULIET Hydrochlorothiazide 12.5 mg 09/14/16 09:00 09/14/16 08:02 Hydrodiuril Tab* PO 12.5 mg QAM JULIET Administration Cefazolin Sodium 1 gm/ Sodium 50 mls @ 200 mls/hr 09/14/16 00:00 09/14/16 08: 02 Chloride IVPB 09/14/16 16:14 200 mls/hr Q8H JULIET Administration Lactated Ringer's 1,000 mls @ 100 mls/hr 09/13/16 17:00 09/14/16 09:45 Lactated Ringers 1000 Ml Bag* IV 100 mls/hr PER RATE JULIET Administration Lactulose 30 ml 09/13/16 16:57 Lactulose* PO Q6H PRN constipation Losartan Potassium 50 mg 09/14/16 09:00 09/14/16 08:02 Cozaar Tab* PO 50 mg QAM JULIET Administration Magnesium Hydroxide 30 ml 09/13/16 16:57 Milk Of Magnesia Liq* PO Q6H PRN constipation Morphine Sulfate 2 mg 09/13/16 16:57 Morphine Inj (Syringe)* IV Q2H PRN PAIN Ondansetron HCl 4 mg 09/13/16 16:57 Zofran Inj* IV Q6H PRN nausea Oxycodone HCl 10 mg 09/13/16 16:57 Roxycodone Tab* PO Q4H PRN SEVERE PAIN Oxycodone/Acetaminophen 1 tab 09/13/16 16:57 09/13/16 21:12 Percocet 5/325 Tab* PO 1 tab Q3H PRN Administration PAIN - MODERATE Oxycodone/Acetaminophen 2 tab 09/13/16 16:57 09/14/16 08:01 Percocet 5/325 Tab* PO 2 tab Q3H PRN Administration PAIN - MODERATE Pharmacy Profile Note 1 note 09/16/16 12:00 Scopolomine Patch Remove* PATCH OFF .AFTER 72 HOURS JULIET Polyethylene Glycol/Electrolytes 17 gm 09/13/16 16:57 Miralax* PO DAILY PRN Constipation Ropinirole HCl 1 mg 09/13/16 23:00 09/14/16 03:31 Requip Tab* PO 1 mg 0300,1600,2200 JULIET Administration Scopolamine 1 patch 09/13/16 12:00 09/13/16 14:00 Transderm-Scop 1.5 Mg Patch* TRANSDERM 1 patch Q72H JULIET Administration
[2016-09-14] MEDS: Cyclobenzaprine TAB* 10 MG PO PRN (12:14)
--- NOTE | 2016-09-14 15:24 | OP ---
OPERATIVE REPORT: DATE OF OPERATION: 09/13/16 DATE OF : 49 ATTENDING SURGEON: Missy Floyd MD. GREEN BUILDING ENGINEER: ERASTO Tamayo. Ms. Hawk did help throughout the procedure with preparation of the leg, wound retraction, manipula tion of the knee, and wound closure. ANESTHESIOLOGIST: Dr. Barron. ANESTHESIA: General. 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 OPERATIVE PROCEDURE: Revision right total knee arthroplasty - all 3 components revised, the tibia, femur, and patella. TOURNIQUET TIME: 88 minutes. ESTIMATED BLOOD LOSS: 600 cc. SPECIMENS: Multiple cultures were sent to Pathology, multiple soft tissue specimens were sent to [facility]. The patient's prior hardware was sent to Pathology. COMPLICATIONS: None. HARDWARE USE: This is [employer] revision hardware with the MBT revision and TC3 components. For the fe mur, a size 2 right Sigma femoral TC3 cemented component was used with a 4 mm distal lateral augment , 8 mm posterolateral augment, and a 75 x 14 uncemented universal fluted stem. For the patella, an oval dome patella 3 peg, size 35 was used. For the tibia, a size 2.5 tibial tra y rotating platform MBT revision was used with a 29 mm MBT revision metaphyseal sleeve. Two packages of Simplex with tobramycin were used. BRIEF HISTORY/INDICATION: Ms. Strong is a 71-year-old female with multiple areas of osteoarthritis . She had right total knee arthroplasty at an outside facility in 2004. The last year she has had increasing pain and swelling in the right knee. Radiographs confirmed osteolysis and polyethylene we ar. Decision was made to revise the right total knee arthroplasty. The patient understood the risk s of surgery included, but were not limited to, bleeding, infection, damage to nearby structures, co ntinued pain, need for further surgery, hardware failure or loosening, intraoperative fracture, nerv e palsy, knee stiffness, loss of motion, stroke, heart attack, blood clot, and . She wished to proceed. INTRAOPERATIVE FINDINGS: Intraoperatively, the patient was noted to have completely loose tibial co mponent with subsidence medially and extensive loss of proximal tibial bone. The entire joint was f illed with metallosis debris and narayan soft tissue capsule. The femur had significant distal femoral bone loss both medially and laterally. The patella had extensive polyethylene wear. DESCRIPTION OF PROCEDURE: Ms. Strong was identified in the preanesthesia unit. Her right lower ext remity was marked as the correct operative side. Informed consent was signed and placed in the buzz t. The patient was taken to the operating room and placed under general anesthesia. A Leal cathet er was placed. Tourniquet was placed on the right thigh. Right lower extremity was prepped and josephine ped in the usual sterile fashion. Preop time-out was made to correctly identify the patient, side, and site. Appropriate perioperative antibiotics were given within 1 hour of incision. The patient's prior midline incision was used. Tourniquet was inflated and a 10- blade was used to incise the skin incision down to the extensor mechanism. New 10- blade was used to make a standard medial parapatellar arthrotomy. Grayish joint fluid was obtained and sent for cultures. The knee j oint was noted to have extensive metallosis. Hanh was used to remove the capsule along the medial and lateral gutters and suprapatellar region using electrocautery. The soft tissue was sent to Namrata delarosa. Electrocautery was used to subperiosteally elevate the soft tissue out along the superomedi al tibia. Rongeur was used to remove any remaining metallosis, soft tissue or fibrotic tissue. The knee was flexed up. The polyethylene was easily removed. At this point a small oscillating saw wa s used to breach the cement hardware interface along the femur. This was done in a sequential fashi on both medially and laterally. Bone tamp was then used to easily remove the femoral component. Ve ry little bone loss was noted. However, there was extensive bone loss in both medial and lateral fe moral condyles due to polyethylene debris, metallosis, and osteolysis. This fibrotic bone was caref ully removed. Tibia was subluxed anteriorly. An osteotome was used to gently elevate the tibial com ponent. The tibial component was grossly loose. There was extensive bone loss along the medial and lateral tibial plateaus, worst along the medial side. Cement removal instruments were used to care fully remove the cement along the mid portion of the tibia and the distal cement plug. A reamer was used to enter the distal intramedullary tibial canal. Canal was sequentially broached up to a size 13. Metaphyseal sleeve broaching was then used to fit a 29 metaphyseal sleeve in the tibia. A shor t 13 stem had fit, but the metaphyseal sleeve sat up. Therefore, decision was made to use just the metaphyseal sleeve with the tibial tray. Metaphyseal sleeve broach size 29 was left and a cleanup cu t was made with an oscillating saw. Next a 2.5 MBT revision tray trial was chosen and this was placed. This had a good fit and good sta bility. AP and lateral C-arm views were obtained to ensure there was no periprosthetic fracture. T here was none noted. Attention was turned next to preparation of the femur. Any fibrotic tissue was carefully removed. The intramedullary femoral canal was sequentially broached up to a size 14. The broach was left in place. The femur was sized to a size 2. Size 2 multi-cutting jig was pinned on the distal femur. A ppropriate chamfer cuts were made. It was noted that there would be a 4-mm distal augment laterally and an 8 mm posterior augment laterally. The box for the TC3 implant was then prepared using an os cillating saw and a guide. A trial femur size 2 with the appropriate augments and a 14-mm stem with 75 length was then assembled and placed. The trial had good fit. A 15-mm insert was chosen. Knee was taken through a range of motion. AP and lateral C-arm views of both the femur and tibia showed satisfactory placement of the trials. Next attention was turned to removal of the patella. Patella was removed carefully with an oscillat ing saw. A drill was used to enter the 3 remaining plastic pegs and these were carefully removed. Patella was sized to a size 35. A 35 guide was used to drill 3 peg holes. A trial 35 patella was p laced and the knee was taken through range of motion. There was satisfactory patellofemoral trackin g. At this time all of the trials were carefully removed. Tourniquet had been turned down at 68 minute s. The knee was carefully exsanguinated and the tourniquet was inflated once again for cementing. The bony cut surfaces were copiously irrigated with sterile saline and dried. The final components were assembled and cemented into place using Simplex cement with tobramycin. Tibia was placed first , followed by the femur, and lastly the patella. A 17.5 mm insert was placed while the knee was bro ught out into full extension. Tourniquet was turned down at 88 minutes. The cement was allowed to f ully cure. The knee was copiously irrigated with sterile saline. The insert trial was removed. Th e capsule was checked for any cement, which was carefully removed. Electrocautery was used to obtai n meticulous hemostasis. Final insert chosen was a 17.5 mm rotating platform TC3 size 2. This was carefully placed without difficulty. The knee was brought out into full extension and had 130 degre es of flexion with good patellofemoral tracking. There was good medial and lateral ligamentous michael ncing. The knee was copiously irrigated with sterile saline. The extensor mechanism was closed using inter rupted #1 Vicryl over a medium Hemovac drain. The rest of the incision was closed in a layered fash ion using 0 and 2-0 Vicryl. Skin was closed using running 3-0 nylon suture. Sterile Xeroform, 4 x 4, and Webril were used to cover the incision. Wan wrap and cold pack were placed over this. The patient's anesthesia was reversed without difficulty. She was taken to the PACU in stable condi tion. Intended weightbearing will be weightbearing as tolerated. Intended DVT prophylaxis will be Coumadin with a Lovenox bridge. [id number]/[facility] #: [id number]
[2016-09-14] MEDS: Magnesium Hydroxide LIQ* 30 ML UDC PO PRN (16:25)
[2016-09-14] MEDS ORDERED: Warfarin TAB(*) 4 MG PO ONE (17:00)
[2016-09-14] MEDS ORDERED: Enoxaparin(*) 40 MG/0.4 ML SYR SUBCUT SCH (17:00)
[2016-09-15] MEDS: Ropinirole TAB* 0.5 MG TAB PO SCH (03:14)
[2016-09-15] MEDS: oxyCODONE/Acetamin 5/325 MG* TAB PO PRN ×3 (03:14→13:53)
[2016-09-15 07:39] LABS: Hematocrit 28 % (35-47); Hemoglobin 9.1 g/dl (12.0-16.0)
--- NOTE | 2016-09-15 08:21 | PN ---
Progress Note - Progress Note Date of Service: 09/15/16 SOAP: Subjective: Pt. is alert, reports pain is controlled. She is doing well. Objective: RLE - dressing changed, inc c/d/i. min edema. distally nvi. Vital Signs: Temp Pulse Resp BP Pulse Ox 98.0 F 80 16 137/62 99 09/15/16 03:21 09/15/16 03:21 09/15/16 05:14 09/15/16 03:21 09/15/16 03:21 Laboratory Results - last 24 hr 09/15/16 09/15/16 07:21 07:21 Hgb 9.1 L Hct 28 L INR (Anticoag Therapy) 1.33 H Assessment: 71 yo F pod 2 s/p revision RTKA Plan: wbat rle pt/ot plan is lovenox today, d/c coumadin pt. will go home on 325 mg ecasa bid per pt. preference. d/c to home today
[2016-09-15] MEDS: Losartan TAB* 25 MG PO SCH (08:24)
[2016-09-15] MEDS: Docusate CAP* 100 MG PO SCH (08:24)
[2016-09-15] MEDS: Hydrochlorothiazide TAB* 25 MG PO SCH (08:24)
[2016-09-15] MEDS: Magnesium Hydroxide LIQ* 30 ML UDC PO PRN (08:24)
[2016-09-15 11:56] VITALS: BP 103/48
[2016-09-15] MEDS ORDERED: Enoxaparin(*) 40 MG/0.4 ML SYR SUBCUT ONE (12:00)
--- NOTE | 2016-09-16 02:06 | DS ---
DISCHARGE SUMMARY: DATE OF ADMISSION: 09/13/16 DATE OF DISCHARGE: 09/15/16 PROVIDER: Dr. Missy Floyd. ADMITTING DIAGNOSIS: Revision of left total knee arthroplasty. CONSULTATIONS: Occupational therapy, physical therapy, and hospitalist medicine. HISTORY OF PRESENT ILLNESS: The patient is a 71-year-old female with periprosthetic osteolysis, internal prosthetic of right knee joint. She was scheduled for surgery by Dr. Missy Floyd and the surgery was performed on 09/13 for revision of the right total knee arthroplasty. HOSPITAL COURSE: The patient was admitted to [facility] on 09/13/16 and underwent a revision left total knee arthroplasty with no complications. The patient recovered briefly in the postanesthesia care unit and was transferred to the short-stay surgical unit in stable condition. On postop day #1, the patient's H and H was 9.6 and 30, INR was 0.99, after 6 mg of Coumadin the night before. Dressing was clean, dry, and intact. Left lower extremity was neurovascularly intact. She could demonstrate dorsiflexion and plantar flexion with good strength. The patient was able to get out of bed with physical therapy. Pain was controlled with oral oxycodone 10 mg. On postop day #2, the urinary catheter was discontinued and the patient was able to void without difficulty. The incision was found to be benign with minimal drainage. No erythema or warmth. The patient's H and H was 9.1 and 28, INR was 1.33 after 6 mg of Coumadin the night before. Pain was controlled with Percocet 5/ 325. The patient was able to ambulate with the use of a rolling walker. The patient's pain was well controlled and was found to be stable for discharge. Throughout the hospital course, the vital signs remained stable and the patient was afebrile. DISCHARGE CONDITION: Good. DISCHARGE MEDICATIONS: New medications: 1. Percocet 5/325. 2. Aspirin 325. 3. Colace. Home medications to resume: 1. Hydrochlorothiazide. 2. Losartan. 3. Vitamin B12. 4. Flintstones chewable multivitamin. 5. Ropinirole. DISCHARGE INSTRUCTIONS: Weightbearing as tolerated. Wound Care: Okay to shower, no bathing/swimming/submerging wound. Use gentle soap, pat dry. Cover with gauze, Wan wrap or tape. Call orthopedic office for increased drainage, redness, increased pain, or fever. Go to the ER for shortness of breath or chest pain. DIET: Regular diet. Increased fluids and fiber to prevent constipation. Continue to use stool softeners, call office if no bowel motion within 48 hours. Continue physical therapy and occupational therapy exercises as shown. Antibiotics required prior to any dental work. Follow up with Dr. Floyd on 09/26/16 or 09/28/16. MOHSEN BERRIOS [id number]/[facility] #: [id number] NATA
[2016-09-16] MEDS ORDERED: Scopolomine PATCH Remove* 1 NOTE MISC PATCH OFF SCH (12:00)
== END 2016-09-15 14:20 | disposition home or self-care (01) | DRG 468 ==
LOC: AA 12:46 → SSU 21:40
PROVIDERS: ADMIT Orthopaedic Surgery Adult Reconstructive Orthopaedic Surgery; ATTEND Orthopaedic Surgery Adult Reconstructive Orthopaedic Surgery
PROC: 0SPC0JZ Removal of Synthetic Substitute from Right Knee Joint, Open Approach (ICD-10-PCS; 2016-09-13)
PROC: 0SRC0J9 Replacement of Right Knee Joint with Synthetic Substitute, Cemented, Open Approach (ICD-10-PCS; principal; 2016-09-13 14:00)
DX: T84.052A Periprosthetic osteolysis of internal prosthetic right knee joint, initial encounter (principal); T84.84XA Pain due to internal orthopedic prosthetic devices, implants and grafts, initial encounter; E66.01 Morbid (severe) obesity due to excess calories; T84.092A Other mechanical complication of internal right knee prosthesis, initial encounter; T84.032A Mechanical loosening of internal right knee prosthetic joint, initial encounter; I10 Essential (primary) hypertension; Z96.653 Presence of artificial knee joint, bilateral; Z96.642 Presence of left artificial hip joint; Y79.2 Prosthetic and other implants, materials and accessory orthopedic devices associated with adverse incidents; G25.81 Restless legs syndrome; R60.9 Edema, unspecified; G47.33 Obstructive sleep apnea (adult) (pediatric); M79.7 Fibromyalgia; Z68.37 Body mass index [BMI] 37.0-37.9, adult; Z85.828 Personal history of other malignant neoplasm of skin; Z98.84 Bariatric surgery status; Z90.49 Acquired absence of other specified parts of digestive tract; Z98.51 Tubal ligation status; Z88.1 Allergy status to other antibiotic agents; Z88.8 Allergy status to other drugs, medicaments and biological substances; Z82.49 Family history of ischemic heart disease and other diseases of the circulatory system; Z80.8 Family history of malignant neoplasm of other organs or systems; Y92.9 Unspecified place or not applicable; Z82.0 Family history of epilepsy and other diseases of the nervous system; Z83.6 Family history of other diseases of the respiratory system; Z79.82 Long term (current) use of aspirin
CPT/HCPCS: 36415; 76000; 80048; 85014; 85018; 85610; 87070; 87073; 87205; 88300; 88305; A9270-GY; C1776; J0690; J1100; J1170; J1200; J1650; J2250; J2405; J2704; J3010

== ENCOUNTER 2024-02-28 08:52 | Observation (INO) ==
[~2024-02-28 08:52] MED LIST changes: -Buffered Lidocaine 0.9% SYRIN* 5 ML/SYR SYRINGE INTRADERM ONE; -Dexamethasone IV* 4 MG/ML 1 ML (4 MG) IV SLOW PU ONE; -Famotidine IV* 10 MG/ML 2 ML (20 mg) IV ONE; +Naloxone 0.4 mg VIAL 0.4 mg/ml 1 ml VIAL IV PRN; +Ondansetron 4 mg VIAL 2 MG/ML 2 ml VIAL IV PRN; -Scopolamine 1.5 mg* PATCH TRANSDERM SCH
[2024-02-28 09:33] LABS: Rapid COVID-19 Molecular Undetected (Undetected)
[2024-02-28] MEDS ORDERED: Lidocaine 2% PF 5 ML VIAL ONE (09:41)
[2024-02-28] MEDS ORDERED: Ondansetron 4 mg VIAL 2 MG/ML 2 ml VIAL ONE (09:43)
[2024-02-28] MEDS ORDERED: fentaNYL 250 mcg/5 ml 50 MCG/ML 5 ml VIAL (250 MCG) ONE ×2 (09:43→12:38)
[2024-02-28] MEDS ORDERED: Dexamethasone IV 4 MG/ML VIAL 1 ml VIAL ONE (09:43)
[2024-02-28] MEDS ORDERED: Midazolam 2 mg/2 ml VIAL 1 mg/ml 2 ml VIAL (2 mg) ONE ×2 (09:43→11:06)
[2024-02-28] MEDS ORDERED: Tranexamic Acid 1 GM/100ML BAG 2,000 MG/200 ML BAG IV ONE (09:55)
[2024-02-28] MEDS ORDERED: ceFAZolin 2 GM PREMIX 2 GM/50 ML BAG ONE (09:55)
[2024-02-28] MEDS ORDERED: ceFAZolin 1 GM in Dextrose 0 GM/0 ML BAG ONE (09:55)
[2024-02-28] MEDS ORDERED: Famotidine IV 10 MG/ML 2 ml VIAL (20 mg) ONE (10:37)
[2024-02-28] MEDS: Famotidine IV 10 MG/ML 2 ml VIAL (20 mg) IV ONE (10:41)
[2024-02-28] MEDS: Buffered Lidocaine 1% SYRIN 1 ml INTRADERM ONE (10:43)
[2024-02-28] MEDS ORDERED: Rocuronium 50 mg VIAL 10 mg/ml 5 ml VIAL (50 mg) ONE ×2 (11:04→11:52)
[2024-02-28] MEDS ORDERED: HYDROmorphone 0.5 MG/0.5 ML SYRINGE ONE ×2 (12:38→13:06)
[2024-02-28] MEDS ORDERED: ROPIVACAINE 5 MG/ML 30 ML BTL (0.5%) ONE (13:35)
[2024-02-28] MEDS ORDERED: Morphine 2 MG/ML SYRINGE IV PRN (14:19)
[2024-02-28] MEDS ORDERED: Lactulose 30 ml UDC PO PRN (14:19)
[2024-02-28] MEDS ORDERED: Magnesium Hydroxide LIQ 30 ML UDC PO PRN (14:19)
[2024-02-28] MEDS ORDERED: Calcium Carb (TUMS) 500 mg CHEW TAB PO PRN (14:19)
[2024-02-28] MEDS ORDERED: Ondansetron ODT 4 mg TAB 4 MG TAB PO PRN (14:19)
[2024-02-28] MEDS ORDERED: fentaNYL 100 mcg/2 ml 50 MCG/ML VIAL ONE (14:32)
[2024-02-28] MEDS: fentaNYL 100 mcg/2 ml 50 MCG/ML VIAL IV PRN (14:35)
[2024-02-28] MEDS: Lactated Ringers 1000 ml BAG 1,000 ML IV SCH ×2 (16:34→21:31)
[2024-02-28] MEDS: Benzocaine/Menthol LOZ PO PRN (21:28)
[2024-02-28] MEDS: Magnesium Hydroxide LIQ 30 ML UDC PO SCH (21:28)
[2024-02-28] MEDS: ceFAZolin 2 GM PREMIX 2 GM/50 ML BAG IV SCH (21:33)
[2024-02-29 06:08] LABS: Hematocrit 38.4 % (35-45); Hemoglobin 12.6 g/dL (11.5-14.3); Mean Platelet Volume 8.1 fL (7.5-11.2); Platelet Count 269 10^3/uL (150-450)
[2024-02-29 06:26] LABS: Creatinine, Serum 1.1 mg/dL (0.51-0.95); Potassium 5.1 mmol/L (3.5-5.0); eGFR CKD-EPI 52.1 (>60)
[2024-02-29 09:48] VITALS: BP 125/51
[2024-02-29] MEDS: Vitamin THERAPEUTIC TAB PO SCH (10:29)
== END 2024-02-29 14:50 | disposition home or self-care (01) ==
LOC: SSU 08:52 → OR 08:52
PROVIDERS: ADMIT Orthopaedic Surgery Adult Reconstructive Orthopaedic Surgery; ATTEND Orthopaedic Surgery Adult Reconstructive Orthopaedic Surgery